=== PATIENT | male | born 1960 | race Caucasian/White ===

== ENCOUNTER 2020-08-19 14:49 | Inpatient (IN) | payer OTHER ==
[2020-08-19] MEDS ORDERED: HEPARIN SODIUM,PORCINE 5,000 UNIT/ML 1 ML VIAL IV ONE (15:29)
[2020-08-19] MEDS ORDERED: HEPARIN SODIUM,PORCINE 5,000 UNIT/ML 1 ML VIAL IV PRN (15:29)
[2020-08-19] MEDS ORDERED: HEPARIN SOD,PORK IN 0.45% NACL 25,000 UNIT in 0.45% NACL 1 250ML.BAG IV SCH (15:30)
[2020-08-19] MEDS ORDERED: DILTIAZEM DRIP BOLUS FROM BAG 1 MG SOLN IV ONE (15:35)
--- NOTE | 2020-08-19 15:37 | ED ---
General Adult HPI - General Chief complaint: Shortness of Breath Stated complaint: SOB Time Seen by Provider: 08/19/20 15:07 Source: patient Mode of arrival: ambulatory Limitations: no limitations - History of Present Illness Initial comments: Dictation was produced using [employer] dictation software. please excuse any grammatical, word or spelling errors. This patient was cared for during a federal and state declared state of emergency secondary to Covid 19 Chief Complaint: 60-year-old male with history of H fibrillation presents with dyspnea History of Present Illness: Patient is a 60-year-old male he was diagnosed with atrial fibrillation several months back. He does not take medications for this. Patient does not take any medications at all. Over the last month or so he is coming down with flulike symptoms. Patient states that his cold symptoms resolved however over the last week he's been feeling orthopnea. He states that over the last 3 or 4 days he has been having dyspnea especially when lying flat. Patient has any palpitations. He has no pain complaints. He is noted swelling to his bilateral lower extremities. He has no calf pain. No history of DVT. The ROS documented in this emergency department record has been reviewed and confirmed by me. Those systems with pertinent positive or negative responses have been documented in the HPI. All other systems are other negative and/or noncontributory. PHYSICAL EXAM: General Impression: Alert and oriented x3, not in acute distress HEENT: Normocephalic atraumatic, extra-ocular movements intact, pupils equal and reactive to light bilaterally, mucous membranes moist. Cardiovascular: Irregularly irregular Chest: Able to complete full sentences, no retractions, no tachypnea Abdomen: abdomen soft, non-tender, non-distended, no organomegaly Musculoskeletal: Pulses present and equal in all extremities, 1+ edema bilaterally Motor: no focal deficits noted Neurological: CN II-XII grossly intact, no focal motor or sensory deficits noted Skin: Intact with no visualized rashes Psych: Normal affect and mood ED course: 60-year-old male presents emergency Department with chief complaint of dyspnea. He does have atrial fibrillation at bedside. Vital signs upon arrival shows heart rate of 73, rest of vital signs within acceptable limits. EKG is performed showing ventricular rate of 147 with atrial fibrillation. Patient denies any palpitations. There is concern that patient has been in A. fib for more than 48 hours over its more than likely that he's been having paroxysms. Patient has symptoms of heart failure. Laboratory evaluation obtained. CBC unremarkable. Coag panel is negative. Metabolic panel shows mild acidosis with a bicarb of 19. Rest of metabolic panel is unremarkable. Cardiac enzymes negative. covid 19 is positive. Patient reevaluated at bedside at 4:40 PM with stable medical condition. Patient be admitted for A. fib with RVR. Patient not hypoxic not showing any signs of respiratory distress. No indication for Covid 19 treatment at this time. EKG interpretation: Ventricular rate 147, A. fib, QRS 90, QTc 503. No CT prolongation, no QTC prolongation, no ST or T-wave changes noted. EKG consistent with recurrent A. fib. No old EKG for comparison. - Related Data Home Medications Medication Instructions Recorded Confirmed Ibuprofen [Motrin Ib] 200 mg PO Q8H PRN 08/19/20 08/19/20 Naproxen Sodium [Aleve] 440 mg PO BID PRN 08/19/20 08/19/20 Allergies Allergy/AdvReac Type Severity Reaction Status Date / Time No Known Allergies Allergy Verified 08/19/20 16:04 Review of Systems ROS Statement: Those systems with pertinent positive or pertinent negative responses have been documented in the HPI. ROS Other: All systems not noted in ROS Statement are negative. Past Medical History Past Medical History: No Reported History History of Any Multi-Drug Resistant Organisms: None Reported Past Surgical History: Appendectomy, Tonsillectomy Past Psychological History: No Psychological Hx Reported Smoking Status: Never smoker Past Alcohol Use History: Rare Past Drug Use History: None Reported General Exam Limitations: no limitations Course Vital Signs 08/19/20 08/19/20 08/19/20 14:59 16:02 16:22 Temperature 98.5 F Pulse Rate 73 144 H 95 Respiratory 20 18 18 Rate Blood Pressure 131/89 137/125 132/100 O2 Sat by Pulse 96 96 98 Oximetry 08/19/20 16:32 Temperature Pulse Rate 97 Respiratory 18 Rate Blood Pressure 117/101 O2 Sat by Pulse 98 Oximetry Medical Decision Making - Lab Data Result diagrams: 08/19/20 15:32 08/19/20 15:32 Lab Results 08/19/20 08/19/20 08/19/20 Range/Units 15:32 15:32 15:32 WBC 7.7 (3.8-10.6) k/uL RBC 5.32 (4.30-5.90) m/uL Hgb 14.8 (13.0-17.5) gm/dL Hct 44.7 (39.0-53.0) % MCV 83.9 (80.0-100.0) fL MCH 27.7 (25.0-35.0) pg MCHC 33.1 (31.0-37.0) g/dL RDW 13.4 (11.5-15.5) % Plt Count 232 (150-450) k/uL MPV 7.7 Neutrophils % 64 % Lymphocytes % 22 % Monocytes % 9 % Eosinophils % 3 % Basophils % 1 % Neutrophils # 4.9 (1.3-7.7) k/uL Lymphocytes # 1.7 (1.0-4.8) k/uL Monocytes # 0.7 (0-1.0) k/uL Eosinophils # 0.2 (0-0.7) k/uL Basophils # 0.1 (0-0.2) k/uL PT 11.7 (9.0-12.0) sec INR 1.1 (<1.2) APTT 22.4 (22.0-30.0) sec Sodium (137-145) mmol/L Potassium (3.5-5.1) mmol/L Chloride (98-107) mmol/L Carbon Dioxide (22-30) mmol/L Anion Gap mmol/L BUN (9-20) mg/dL Creatinine (0.66-1.25) mg/dL Est GFR (CKD-EPI)AfAm (>60 ml/min/1.73 sqM) Est GFR (CKD-EPI)NonAf (>60 ml/min/1.73 sqM) Glucose (74-99) mg/dL Calcium (8.4-10.2) mg/dL Magnesium (1.6-2.3) mg/dL Total Bilirubin (0.2-1.3) mg/dL AST (17-59) U/L ALT (4-49) U/L Alkaline Phosphatase (38-126) U/L Troponin I (0.000-0.034) ng/mL NT-Pro-B Natriuret Pep pg/mL Total Protein (6.3-8.2) g/dL Albumin (3.5-5.0) g/dL TSH (0.465-4.680) mIU/L Coronavirus (PCR) Detected A (Not Detectd) 08/19/20 08/19/20 08/19/20 Range/Units 15:32 15:32 15:32 WBC (3.8-10.6) k/uL RBC (4.30-5.90) m/uL Hgb (13.0-17.5) gm/dL Hct (39.0-53.0) % MCV (80.0-100.0) fL MCH (25.0-35.0) pg MCHC (31.0-37.0) g/dL RDW (11.5-15.5) % Plt Count (150-450) k/uL MPV Neutrophils % % Lymphocytes % % Monocytes % % Eosinophils % % Basophils % % Neutrophils # (1.3-7.7) k/uL Lymphocytes # (1.0-4.8) k/uL Monocytes # (0-1.0) k/uL Eosinophils # (0-0.7) k/uL Basophils # (0-0.2) k/uL PT (9.0-12.0) sec INR (<1.2) APTT (22.0-30.0) sec Sodium 139 (137-145) mmol/L Potassium 4.6 (3.5-5.1) mmol/L Chloride 110 H (98-107) mmol/L Carbon Dioxide 19 L (22-30) mmol/L Anion Gap 10 mmol/L BUN 21 H (9-20) mg/dL Creatinine 0.84 (0.66-1.25) mg/dL Est GFR (CKD-EPI)AfAm >90 (>60 ml/min/1.73 sqM) Est GFR (CKD-EPI)NonAf >90 (>60 ml/min/1.73 sqM) Glucose 98 (74-99) mg/dL Calcium 9.1 (8.4-10.2) mg/dL Magnesium 1.7 (1.6-2.3) mg/dL Total Bilirubin 1.2 (0.2-1.3) mg/dL AST 30 (17-59) U/L ALT 40 (4-49) U/L Alkaline Phosphatase 74 (38-126) U/L Troponin I <0.012 (0.000-0.034) ng/mL NT-Pro-B Natriuret Pep 4610 pg/mL Total Protein 6.3 (6.3-8.2) g/dL Albumin 4.0 (3.5-5.0) g/dL TSH 2.060 (0.465-4.680) mIU/L Coronavirus (PCR) (Not Detectd) Disposition Clinical Impression: Afib, COVID-19 Disposition: ADMITTED IP TO THIS HOSP Condition: Fair Referrals: Fredrick Sevilla DO [Primary Care Provider] - 1-2 days Decision Time: 16:43
[2020-08-19 15:41] LABS: Basophils # (A) 0.1 k/uL (0-0.2); Basophils % (A) 1 %; Eosinophils # (A) 0.2 k/uL (0-0.7); Eosinophils % (A) 3 %; HCT 44.7 % (39.0-53.0); HGB 14.8 gm/dL (13.0-17.5); Lymphocytes # (A) 1.7 k/uL (1.0-4.8); Lymphocytes % (A) 22 %; MCH 27.7 pg (25.0-35.0); MCHC 33.1 g/dL (31.0-37.0); MCV 83.9 fL (80.0-100.0); Mean Platelet Volume 7.7; Monocytes # (A) 0.7 k/uL (0-1.0); Monocytes % (A) 9 %; Neutrophils # (A) 4.9 k/uL (1.3-7.7); Neutrophils % (A) 64 %; Platelet Count 232 k/uL (150-450); RBC 5.32 m/uL (4.30-5.90); RDW 13.4 % (11.5-15.5); WBC 7.7 k/uL (3.8-10.6)
[2020-08-19 15:50] LABS: ALT 40 U/L (4-49); AST 30 U/L (17-59); African American GFR (CKD) >90 (>60 ml/min/1.73 sqM); Alkaline Phosphatase 74 U/L (38-126); Anion Gap 10 mmol/L; Blood Urea Nitrogen 21 mg/dL (9-20); Calcium 9.1 mg/dL (8.4-10.2); Carbon Dioxide 19 mmol/L (22-30); Chloride 110 mmol/L (98-107); Glucose 98 mg/dL (74-99); Magnesium 1.7 mg/dL (1.6-2.3); Non-African American GFR(CKD) >90 (>60 ml/min/1.73 sqM); Potassium 4.6 mmol/L (3.5-5.1); Sodium 139 mmol/L (137-145); Total Bilirubin 1.2 mg/dL (0.2-1.3); Total Protein 6.3 g/dL (6.3-8.2)
[2020-08-19 15:53] LABS: INR 1.1 (<1.2); Partial Thromboplastin Time 22.4 sec (22.0-30.0); Prothrombin Time 11.7 sec (9.0-12.0)
[2020-08-19] MEDS: DILTIAZEM 125 MG in SODIUM CHLORIDE 0.9% 100 ML IV SCH (16:10)
--- NOTE | 2020-08-19 16:24 | XR ---
EXAMINATION TYPE: XR chest 1V portable DATE OF EXAM: 08/19/2020 Comparison: None Clinical History: 60 year-old male shortness of breath, dyspnea Findings: Heart mild to moderately enlarged. Mild patchy density in the right midlung. Otherwise, no consolidat ion or pleural effusion. Impression: Mild to moderate cardiomegaly. Mild patchy atelectasis versus early infiltrate in the right midlung.
[2020-08-19] MEDS ORDERED: NALOXONE 0.4 MG/ML 1 ML VIAL IV PRN (16:40)
[2020-08-19] MEDS ORDERED: ALBUTEROL HFA INHALER INHALATION PRN (19:05)
[2020-08-19 19:19] LABS: C Reactive Protein 7.7 mg/L (<10.0)
[2020-08-19] MEDS: ALBUTEROL HFA INHALER INHALATION SCH (19:43)
[2020-08-19] MEDS: ASCORBIC ACID 500 MG TAB PO SCH (19:54)
[2020-08-19] MEDS: CHOLECALCIFEROL 25 MCG (1000 IU) TABLET PO SCH ×3 (19:54→22:00)
[2020-08-19] MEDS: dexAMETHasone 2 MG TAB PO SCH (19:54)
[2020-08-19] MEDS: SODIUM CHLORIDE 0.9% 1,000 ML IV SCH (19:54)
[2020-08-19] MEDS: ZINC SULFATE 220 MG CAP PO SCH (19:54)
--- NOTE | 2020-08-19 20:03 | HP ---
HISTORY AND PHYSICAL CHIEF COMPLAINTS: Shortness of breath and palpitations. HISTORY OF PRESENT ILLNESS: This 60-year-old gentleman with a past medical history of appendectomy and tonsillectomy, being followed by Dr. Sevilla in the outpatient setting, was not feeling well over the past several days. The patient has had some flu-like symptoms for about a month. The patient's colleague at work had COVID in April. The patient was having more shortness of breath and was unable to sleep and lie flat for the last 3- 4 days. Because of increased symptoms, the patient came to [facility] and was admitted for further evaluation and treatment. The chest x-ray showed suspicion of pneumonia in the right side and the COVID-19 test . There is no history of any fever, rigor or chills. No history of headache, loss of consciousness, seizures. NT proBNP was elevated 4610. The EKG showed atrial fibrillation with a fast ventricular rate. The patient also had previous atrial fibrillation with rapid ventricular rate, for which the patient had DC shock and cardioversion. PAST MEDICAL HISTORY: Appendectomy, tonsillectomy. HOME MEDICATIONS: Naprosyn, ibuprofen. ALLERGIES: NONE. FAMILY HISTORY: No history of heart disease or strokes in the family. SOCIAL HISTORY: No history of smoking. No history of alcohol intake. REVIEW OF SYSTEMS: ENT: No diminished hearing. No diminished vision. CARDIOVASCULAR SYSTEM: No angina, palpitations. RESPIRATORY SYSTEM: As mentioned earlier. GI: As mentioned earlier. : No dysuria or retention. NERVOUS SYSTEM: No numbness, weakness. ALLERGY/IMMUNOLOGY: No asthma, hayfever. MUSCULOSKELETAL: As mentioned earlier. HEMATOLOGY/ONCOLOGY: No history of anemia. ENDOCRINE: No history of diabetes, hypothyroidism. CONSTITUTIONAL: As mentioned earlier. DERMATOLOGY: Negative. RHEUMATOLOGY: Negative. PSYCHIATRY: As mentioned earlier. PHYSICAL EXAMINATION: Patient alert and oriented x3. Pulse 96, blood pressure 130/94, respiration 18, temperature normal, pulse ox 97% on room air. HEENT: Conjunctivae normal. NECK: No jugular venous distention. CARDIOVASCULAR SYSTEM: S1, S2 muffled. RESPIRATORY SYSTEM: Breath sounds diminished at the bases. No rhonchi. No crackles. ABDOMEN: Soft, non-tender. No mass palpable. LEGS: No edema. No swelling. NERVOUS SYSTEM: Higher functions as mentioned earlier. Moves all 4 limbs. No focal motor or sensory deficit. LYMPHATICS: No lymph node palpable in neck, axillae or groin. SKIN: No ulcer, rash, bleeding. JOINTS: No active deforming arthropathy. LABS: CBC within normal limits. CO2 is 19. COVID-19 is positive. Chest x-ray reviewed personally. EKG atrial fibrillation with rapid ventricular rate. ASSESSMENT: 1. Atrial fibrillation with a fast ventricular rate. 2. Acute COVID-19 as well as COVID-19 pneumonia and orthopnea. 3. History of appendectomy. 4. History of tonsillectomy. 5. Decreased carbon dioxide. 6. Increased BUN. 7. FULL CODE. 8. Obesity with body mass index of 31.7. RECOMMENDATIONS AND DISCUSSION: In this 60-year-old gentleman who presented with multiple complex medical issues, we will monitor the patient closely, continue the current medications, continue symptomatic treatment. I would recommend bronchodilators. I also recommend dexamethasone and zinc and other medications. Cardizem drip was initiated. I would also recommend baseline labs, inflammatory markers for COVID-19 and also procalcitonin. I also ordered D-dimer, and if it is positive I would recommend a CT angio of the chest to rule out possible pulmonary embolism. Overall prognosis guarded because of multiple complex medical issues. Questions were answered. A copy of this dictation is being forwarded to Dr. Sevilla, who is the primary physician. SANKETL / YAZMINN: [id number] / MTDD
[2020-08-19] MEDS: FUROSEMIDE 10 MG/ML 2 ML VIAL IV SCH (22:02)
[2020-08-19 22:06] LABS: Appearance,Urine Clear (Clear); Bilirubin,Urine Negative (Negative); Blood,Urine Negative (Negative); Color,Urine Yellow; Glucose,Urine (UA) Negative (Negative); Ketones,Urine 1+ (Negative); Leukocyte Esterase,Urine Negative (Negative); Nitrite,Urine Negative (Negative); PH, Urine 5.5 (5.0-8.0); Protein,Urine Negative (Negative); Specific Gravity,Urine 1.016 (1.001-1.035); Urobilinogen,Urine <2.0 mg/dL (<2.0)
[2020-08-20] MEDS: DILTIAZEM 125 MG in SODIUM CHLORIDE 0.9% 100 ML IV SCH (05:39)
[2020-08-20 06:31] LABS: Basophils % (A) 0 %; Eosinophils % (A) 0 %; HCT 44.6 % (39.0-53.0); HGB 14.5 gm/dL (13.0-17.5); Lymphocytes # (A) 0.6 k/uL (1.0-4.8); Lymphocytes % (A) 12 %; MCH 28.2 pg (25.0-35.0); MCHC 32.6 g/dL (31.0-37.0); MCV 86.3 fL (80.0-100.0); Mean Platelet Volume 8.2; Monocytes # (A) 0.2 k/uL (0-1.0); Monocytes % (A) 4 %; Neutrophils # (A) 3.7 k/uL (1.3-7.7); Neutrophils % (A) 82 %; Platelet Count 217 k/uL (150-450); RBC 5.16 m/uL (4.30-5.90); RDW 13.5 % (11.5-15.5); WBC 4.5 k/uL (3.8-10.6)
[2020-08-20 06:50] LABS: African American GFR (CKD) >90 (>60 ml/min/1.73 sqM); Anion Gap 10 mmol/L; Blood Urea Nitrogen 16 mg/dL (9-20); Calcium 8.8 mg/dL (8.4-10.2); Carbon Dioxide 18 mmol/L (22-30); Chloride 110 mmol/L (98-107); Glucose 127 mg/dL (74-99); Non-African American GFR(CKD) >90 (>60 ml/min/1.73 sqM); Potassium 4.7 mmol/L (3.5-5.1); Sodium 138 mmol/L (137-145)
[2020-08-20] MEDS: ALBUTEROL HFA INHALER INHALATION SCH ×3 (08:21→20:27)
[2020-08-20 08:24] LABS: Ferritin 36.7 ng/mL (22.0-322.0)
[2020-08-20] MEDS ORDERED: METOPROLOL TARTRATE 25 MG TAB PO SCH (09:00)
--- NOTE | 2020-08-20 09:25 | P.CRDCN ---
History of Present Illness History of present illness: HISTORY OF PRESENTING ILLNESS This is a pleasant 60-year-old male with no significant past medical history. He followed with a hoop coiler, Dr. Freed, in [facility] 4 years ago when patient. Patient was in atrial fibrillation at that time he states his hoop coiler right him on anticoagulation and had a successful cardioversion to sinus mechanism. We have been asked to see in consultation for Atrial fibrillation with RVR. Patient is seen and examined at bedside apparent distress. Patient states that he's been shortness of breath and flu like symptoms for 3 weeks, found to be COVID-19 positive. His flu like systems resolved, however, he continued to have shortness of breath without improvement and presented to the emergency department. Patient denies chest pain, palpitations, lower extremity edema, lightheadedness, syncope. Patient was a former smoker and quit 6 years ago. Patient denies history of diabetes, stroke, AL, or coronary artery disease. Laboratory data reviewed, Covid 19 positive, sodium 138, potassium 4.7, renal function stable creatinine 0.6, troponin negative x 1. BNP 4,610, D-dimer 1.74, TSH normal, liver enzymes within normal limits. Vital signs blood pressure 114/96, heart rate 87, respirations 18, O2 saturations stable on room air. DIAGNOSTICS EKG reveals atrial fibriallation with rapid ventricular response, HR 140s. . Telemetry tracings indicate atrial fibrillation, HR 90s. Chest xray mild to moderate cardiomegaly, mild patchy atelectasis vs early infiltrate in the right mid lung. . Patient is not currently on any cardiac medications REVIEW OF SYSTEMS At the time of my exam: CONSTITUTIONAL: Denies fever or chills. CARDIOVASCULAR: +shortness of breath, +orthopnea. Denies chest pain, PND or palpitations. RESPIRATORY: Denies cough. GASTROINTESTINAL: Denies abdominal pain, diarrhea, constipation, nausea or vomiting. MUSCULOSKELETAL: Denies myalgias. NEUROLOGIC: Denies numbness, tingling, headacbe or weakness. ENDOCRINE: Denies fatigue, weight change, polydipsia or polyurina. GENITOURINARY: Denies burning, hematuria or urgency with micturation. HEMATOLOGIC: Denies history of anemia or bleeding. PHYSICAL EXAMINATION CONSTITUTIONAL: No apparent distress. HEENT: Head is normocephalic. Pupils are equal, round. Sclerae anicteric. Mucous membranes of the mouth are moist. No JVD. No carotid bruit. CHEST EXAMINATION: Lungs are clear to auscultation. No chest wall tenderness is noted on palpation or with deep breathing. HEART EXAMINATION: Irregular rate and rhythm. S1, S2 heard. No murmurs, gallops or rub. ABDOMEN: Soft, nontender. Positive bowel sounds. EXTREMITIES: 2+ peripheral pulses, no lower extremity edema and no calf tenderness. SKIN: intact, no wounds, no rashes NEUROLOGIC EXAMINATION: Patient is awake, alert and oriented x3. ASSESSMENT -Paroxysmal atrial fibrillation - [id number] 0-1 (patient with hypertension during admission, however, no diagnosis) -COVID-19 infection -Obesity BMI 33.7 PLAN -Ordered TTE -Start beta susan: metoprolol 25mg BID, stop cardizem drip will monitor im provement in heart rate -Start Eliquis and send to pharmacy and correlate with case management to check cost. Patient could be of benefit of KAJAL Cardioversion. -Stop heparin gtt. -Check Lipid panel Nurse Practitioner note has been reviewed, I agree with a documented findings and plan of care. Patient was seen and examined. Past Medical History Past Medical History: Atrial Fibrillation History of Any Multi-Drug Resistant Organisms: None Reported Past Surgical History: Appendectomy, Tonsillectomy Additional Past Surgical History / Comment(s): Right testicle removal at Past Psychological History: No Psychological Hx Reported Smoking Status: Former smoker Past Alcohol Use History: Rare Additional Past Alcohol Use History / Comment(s): Quit smoking in 2014 Past Drug Use History: None Reported Medications and Allergies Home Medications Medication Instructions Recorded Confirmed Type Ibuprofen [Motrin Ib] 200 mg PO Q8H PRN 08/19/20 08/19/20 History Naproxen Sodium [Aleve] 440 mg PO BID PRN 08/19/20 08/19/20 History Apixaban [Eliquis] 5 mg PO BID #180 tab 08/20/20 Rx Allergies Allergy/AdvReac Type Severity Reaction Status Date / Time No Known Allergies Allergy Verified 08/19/20 16:04 Physical Exam Vitals: Vital Signs Temp Pulse Pulse Resp BP BP Pulse Ox 08/20/20 03:05 97.5 F L 99 18 132/86 95 08/20/20 01:00 98 F 101 H 18 149/106 96 08/20/20 00:22 97.9 F 102 H 16 122/96 96 08/19/20 23:08 87 18 114/96 94 L 08/19/20 22:00 97 18 113/102 97 08/19/20 21:00 98 18 125/102 98 08/19/20 20:47 92 18 151/71 08/19/20 19:44 94 18 109/97 98 08/19/20 19:00 99 18 121/90 97 08/19/20 18:00 106 H 18 134/101 97 08/19/20 17:26 96 18 135/94 97 08/19/20 17:06 18 08/19/20 16:32 97 18 117/101 98 08/19/20 16:22 95 18 132/100 98 08/19/20 16:02 144 H 18 137/125 96 08/19/20 14:59 98.5 F 73 20 131/89 96 Intake and Output 08/19/20 08/20/20 08/20/20 22:59 06:59 14:59 Intake Total 1.833 216.057 Output Total 250 1100 Balance 1.833 -33.943 -1100 Intake: Intake, IV Titration 1.833 216.057 Amount Diltiazem 125 mg In 1.833 66.5 Sodium Chloride 0.9% 100 ml @ 10 MG/HR 10 mls/hr IV .[id number] [facility] Rx#: [id number] Heparin Sod,Pork in 0.45% 149.557 NaCl 25,000 unit In 0.45 % NaCl 1 250ml.bag @ 9.2 UNITS/KG/HR 10.015 mls/hr IV .Q24H [facility] Rx#: [id number] Output: Urine 250 1100 Other: Voiding Method Toilet Urinal # Voids 1 Weight 116 kg Results 08/20/20 05:34 08/20/20 05:34 Cardiac Enzymes 08/19/20 08/19/20 08/19/20 Range/Units 15:32 15:32 15:32 AST 30 (17-59) U/L Lactate Dehydrogenase 584 (313-618) U/L Troponin I <0.012 (0.000-0.034) ng/mL Coagulation 08/19/20 08/19/20 08/20/20 Range/Units 15:32 21:26 05:35 PT 11.7 (9.0-12.0) sec APTT 22.4 31.5 H 26.7 (22.0-30.0) sec CBC 08/19/20 08/20/20 Range/Units 15:32 05:34 WBC 7.7 4.5 (3.8-10.6) k/uL RBC 5.32 5.16 (4.30-5.90) m/uL Hgb 14.8 14.5 (13.0-17.5) gm/dL Hct 44.7 44.6 (39.0-53.0) % Plt Count 232 217 (150-450) k/uL Comprehensive Metabolic Panel 08/19/20 08/20/20 Range/Units 15:32 05:34 Sodium 139 138 (137-145) mmol/L Potassium 4.6 4.7 (3.5-5.1) mmol/L Chloride 110 H 110 H (98-107) mmol/L Carbon Dioxide 19 L 18 L (22-30) mmol/L BUN 21 H 16 (9-20) mg/dL Creatinine 0.84 0.76 (0.66-1.25) mg/dL Glucose 98 127 H (74-99) mg/dL Calcium 9.1 8.8 (8.4-10.2) mg/dL AST 30 (17-59) U/L ALT 40 (4-49) U/L Alkaline Phosphatase 74 (38-126) U/L Total Protein 6.3 (6.3-8.2) g/dL Albumin 4.0 (3.5-5.0) g/dL Current Medications Generic Name Dose Route Start Last Admin Trade Name Freq PRN Reason Stop Dose Admin Albuterol Sulfate 2 puff 08/19/20 20:00 08/20/20 08:21 Albuterol Hfa Inhaler INHALATION 2 puff RT-TID [facility]MY Administration Albuterol Sulfate 2 puff 08/19/20 19:05 Albuterol Hfa Inhaler INHALATION RT-TID PRN Shortness Of Breath Or Wheezing Ascorbic Acid 500 mg 08/19/20 19:00 08/19/20 19:54 Ascorbic Acid 500 Mg Tab PO 500 mg DAILY AMMY Administration Ascorbic Acid 1,000 mg 03/03/21 09:00 Ascorbic Acid 500 Mg Tab PO DAILY [facility] Cholecalciferol 25 mcg 08/19/20 19:00 08/19/20 20:06 Cholecalciferol 25 Mcg (1000 Iu) Tablet PO 25 mcg DAILY AMMY Administration Cholecalciferol 25 mcg 08/19/20 20:00 08/19/20 22:00 Cholecalciferol 25 Mcg (1000 Iu) Tablet PO Not Given DAILY [facility]MY Cholecalciferol 25 mcg 08/20/20 09:00 Cholecalciferol 25 Mcg (1000 Iu) Tablet PO DAILY [facility] Dexamethasone 6 mg 08/19/20 19:00 08/19/20 19:54 Dexamethasone 2 Mg Tab PO 6 mg DAILY [facility]MY Administration Furosemide 20 mg 08/19/20 21:00 08/19/20 22:02 Furosemide 10 Mg/Ml 2 Ml Vial IV 20 mg Q12HR [facility] Administration Heparin Sodium (Porcine) 0 unit 08/19/20 15:29 08/20/20 06:54 Heparin Sodium,Porcine 5,000 Unit/Ml 1 Ml Vial IV 4,000 unit PER PROTOCOL PRN Administration Low PTT Protocol Heparin Sodium/Sodium Chloride 250 mls @ 10.015 mls/hr 08/19/20 15:30 08/20/20 06:48 25,000 unit/ Sodium Chloride IV 12.2 units/kg/hr .Q24H [facility] 13.281 mls/hr Titration Protocol 9.2 UNITS/KG/HR Diltiazem HCl 125 mg/ Sodium 125 mls @ 10 mls/hr 08/19/20 15:45 08/20/20 05:39 Chloride IV 5 mg/hr .[id number] [facility]MY 5 mls/hr Administration 10 MG/HR Sodium Chloride 1,000 mls @ 20 mls/hr 08/19/20 16:45 08/19/20 19:54 Saline 0.9% IV 20 mls/hr .Q24H [facility] Administration Metoprolol Tartrate 25 mg 08/20/20 09:00 Metoprolol Tartrate 25 Mg Tab PO BID [facility] Naloxone HCl 0.2 mg 08/19/20 16:40 Naloxone 0.4 Mg/Ml 1 Ml Vial IV Q2M PRN Opioid Reversal Zinc Sulfate 220 mg 08/19/20 19:00 08/19/20 19:54 Zinc Sulfate 220 Mg Cap PO 220 mg DAILY [facility]MY Administration Zinc Sulfate 220 mg 08/20/20 09:00 Zinc Sulfate 220 Mg Cap PO DAILY [facility] Intake and Output 08/19/20 08/20/20 08/20/20 22:59 06:59 14:59 Intake Total 1.833 216.057 Output Total 250 1100 Balance 1.833 -33.943 -1100 Intake: Intake, IV Titration 1.833 216.057 Amount Diltiazem 125 mg In 1.833 66.5 Sodium Chloride 0.9% 100 ml @ 10 MG/HR 10 mls/hr IV .[id number] [facility] Rx#: [id number] Heparin Sod,Pork in 0.45% 149.557 NaCl 25,000 unit In 0.45 % NaCl 1 250ml.bag @ 9.2 UNITS/KG/HR 10.015 mls/hr IV .Q24H [facility] Rx#: [id number] Output: Urine 250 1100 Other: Voiding Method Toilet Urinal # Voids 1 Weight 116 kg 08/20/20 05:34 08/20/20 05:34
[2020-08-20] MEDS: dexAMETHasone 2 MG TAB PO SCH (09:46)
[2020-08-20] MEDS: ZINC SULFATE 220 MG CAP PO SCH (09:46)
[2020-08-20] MEDS: ASCORBIC ACID 500 MG TAB PO SCH (09:46)
[2020-08-20] MEDS: FUROSEMIDE 10 MG/ML 2 ML VIAL IV SCH ×2 (09:47→20:30)
[2020-08-20] MEDS: CHOLECALCIFEROL 25 MCG (1000 IU) TABLET PO SCH (09:47)
[2020-08-20] MEDS: APIXABAN 5 MG TAB PO SCH ×2 (09:51→20:30)
--- NOTE | 2020-08-20 10:31 | P.CNPUL ---
History of Present Illness Consult date: 08/20/20 Reason for consult: dyspnea History of present illness: 60-year-old female patient who presented emergency department because of shortness of breath and tachycardia. The patient was diagnosed having atrial fibrillation several months back. She started having cold-like symptoms and over the past 1 week she has been feeling worsening shortness of breath and orthopnea. Over the past few days, dyspnea got worse to the point where she was unable to lay down flat because of shortness of breath and was having worsening palpitation. Denied having any chest pain. She also notices swelling in lower extremities. No angina. No pleurisy. No previous history of DVT or pulmonary embolism. She came into the emergency department and the patient was found to be in atrial fibrillation. Her vitals were essentially stable and EKG showed rapid ventricular response with a heart rate of 147 with underlying atrial fibrillation rhythm. The white cell count was at 7.7 her hemoglobin of 14.8 and a platelet of 232. Coagulation profile was within normal limits. The patient had a sodium 139, chloride of 4.6 with a serum bicarb of 19, BUN was 21 with a creatinine of 0.8 and the liver function tests are essentially within normal limits, LDH was 584 and a troponin was less than 0.012. ProBNP level was 4610. Over COVID 19 by PCR came back positive. The chest x-ray showed mild to moderate cardiomegaly and mild patchy atelectasis/infiltrate in the lung. The patient was started on Decadron 6 mg by mouth daily. The patient was started on IV heparin. The patient was also started on a Cardizem drip or rate control is currently running at 10 mg an hour. This morning, the patient is still on Cardizem drip and it has been weaned down to 5 mg an hour. The patient was taken off the IV heparin and patient has been switched to oral Eliquis. Echocardiogram is still pending for now. Review of Systems Constitutional: Reports as per HPI Eyes: denies as per HPI, denies blurred vision, denies bulging eye, denies decreased vision, denies diplopia, denies discharge, denies dry eye, denies irritation, denies itching, denies pain, denies photophobia, denies loss of peripheral vision, denies loss of vision, denies tunnel vision/blind spots Breasts: absent: as per HPI, gynecomastia Cardiovascular: Reports as per HPI, Reports decreased exercise tolerance, Reports dyspnea on exertion, Reports irregular heart beat, Reports leg edema, Reports orthopnea, Reports shortness of breath Respiratory: Reports dyspnea Gastrointestinal: Reports as per HPI Musculoskeletal: Reports as per HPI Musculoskeletal: bilateral: ankle swelling, absent: ankle pain, ankle stiffness Integumentary: Reports as per HPI Neurological: Reports as per HPI Psychiatric: Reports as per HPI Endocrine: Reports as per HPI Hematologic/Lymphatic: Reports as per HPI Allergic/Immunologic: Reports as per HPI Past Medical History Past Medical History: Atrial Fibrillation History of Any Multi-Drug Resistant Organisms: None Reported Past Surgical History: Appendectomy, Tonsillectomy Additional Past Surgical History / Comment(s): Right testicle removal at Past Psychological History: No Psychological Hx Reported Smoking Status: Former smoker Past Alcohol Use History: Rare Additional Past Alcohol Use History / Comment(s): Quit smoking in 2014 Past Drug Use History: None Reported Medications and Allergies Home Medications Medication Instructions Recorded Confirmed Type Ibuprofen [Motrin Ib] 200 mg PO Q8H PRN 08/19/20 08/19/20 History Naproxen Sodium [Aleve] 440 mg PO BID PRN 08/19/20 08/19/20 History RX: Apixaban [Eliquis] 5 mg PO BID #180 tab 08/20/20 Rx Allergies Allergy/AdvReac Type Severity Reaction Status Date / Time No Known Allergies Allergy Verified 08/19/20 16:04 Physical Exam Vitals: Vital Signs Temp Pulse Pulse Resp BP BP Pulse Ox 08/20/20 03:05 97.5 F L 99 18 132/86 95 08/20/20 01:00 98 F 101 H 18 149/106 96 08/20/20 00:22 97.9 F 102 H 16 122/96 96 08/19/20 23:08 87 18 114/96 94 L 08/19/20 22:00 97 18 113/102 97 08/19/20 21:00 98 18 125/102 98 08/19/20 20:47 92 18 151/71 08/19/20 19:44 94 18 109/97 98 08/19/20 19:00 99 18 121/90 97 08/19/20 18:00 106 H 18 134/101 97 08/19/20 17:26 96 18 135/94 97 08/19/20 17:06 18 08/19/20 16:32 97 18 117/101 98 08/19/20 16:22 95 18 132/100 98 08/19/20 16:02 144 H 18 137/125 96 08/19/20 14:59 98.5 F 73 20 131/89 96 Intake and Output 08/19/20 08/20/20 08/20/20 22:59 06:59 14:59 Intake Total 1.833 216.057 Output Total 250 1100 Balance 1.833 -33.943 -1100 Intake: Intake, IV Titration 1.833 216.057 Amount Diltiazem 125 mg In 1.833 66.5 Sodium Chloride 0.9% 100 ml @ 10 MG/HR 10 mls/hr IV .[id number] [facility] Rx#: [id number] Heparin Sod,Pork in 0.45% 149.557 NaCl 25,000 unit In 0.45 % NaCl 1 250ml.bag @ 9.2 UNITS/KG/HR 10.015 mls/hr IV .Q24H [facility] Rx#: [id number] Output: Urine 250 1100 Other: Voiding Method Toilet Urinal # Voids 1 Weight 116 kg General Impression: Alert and oriented x3, not in acute distress HEENT: Normocephalic atraumatic, extra-ocular movements intact, pupils equal and reactive to light bilaterally, mucous membranes moist. Cardiovascular: Irregularly irregular Chest: Able to complete full sentences, no retractions, no tachypnea Abdomen: abdomen soft, non-tender, non-distended, no organomegaly Musculoskeletal: Pulses present and equal in all extremities, 1+ edema bilaterally Motor: no focal deficits noted Neurological: CN II-XII grossly intact, no focal motor or sensory deficits noted Skin: Intact with no visualized rashes Psych: Normal affect and mood Results - Laboratory Findings CBC and BMP: 08/20/20 05:34 08/20/20 05:34 PT/INR, D-dimer PT 11.7 sec (9.0-12.0) 08/19/20 15:32 INR 1.1 (<1.2) 08/19/20 15:32 D-Dimer 1.74 mg/L FEU (<0.60) H 08/19/20 15:32 Abnormal lab findings: Abnormal Labs 03/08/1008/19/20 08/19/20 15:32 15:32 15:32 Lymphocytes # APTT D-Dimer 1.74 H Chloride 110 H Carbon Dioxide 19 L BUN 21 H Glucose Urine Ketones Coronavirus (PCR) Detected A 08/19/20 08/19/20 08/20/20 21:26 21:55 05:34 Lymphocytes # 0.6 L APTT 31.5 H D-Dimer Chloride Carbon Dioxide BUN Glucose Urine Ketones 1+ H Coronavirus (PCR) 08/20/20 05:34 Lymphocytes # APTT D-Dimer Chloride 110 H Carbon Dioxide 18 L BUN Glucose 127 H Urine Ketones Coronavirus (PCR) - Diagnostic Findings Chest x-ray: image reviewed Assessment and Plan Plan: 1 Acute COVID 19 infection with secondary pneumonia, and the patient symptoms were at least 2-3 weeks ago where he started developing cold-like symptoms and he was never tested for Covid 19. The cold symptoms have essentially recovered. 2 Chronic atrial fibrillation with RVR secondary to above, currently on IV heparin currently on Cardizem drip for rate control. 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 3 shortness of breath secondary to above, consider also the possibility of congestion heart failure with elevated proBNP level and increased swelling of the lower extremities Plan Evaluate the patient was admitted to the echocardiogram to assess LV function IV fluids to KVO Lasix 20 mg IV every 12 hours Decadron 6 mg by mouth daily regarding Covid 19 infection, in combination with vitamin C, vitamin D and zinc oxide, out of the window for Remdesivir IV heparin regarding atrial fibrillation with subsequent long-term anticoagulation regarding chronic atrial fibrillation with Eliquis and IV heparin has been discontinued Cardizem drip for rate control, the dose admitted To 5 Mg milligrams an hour and the patient is also on metoprolol 50 mg by mouth twice a day Cardiology consultation Monitor oxygenation To follow
--- NOTE | 2020-08-20 11:49 | ECHOF ---
Referral Reason:afib MEASUREMENTS -------- HEIGHT: 182.9 cm WEIGHT: 108.9 kg BP: Ao Diam: 3.4 cm (2.0 - 3.7) AV Cusp: 1.9 cm (1.5 - 2.6) LA Diam: 6.2 cm (2.7 - 3.8) RAP: 5.00 mmHg RVSP: 33.95 mmHg FINDINGS -------- Atrial fibrillation. Patient is Covid positive. The left ventricular size is normal. There is severe global hypokinesis of LV . Overall left vent ricular systolic function is severely impaired with, an EF between 20 - 25 %. The right ventricle is normal in size. The left atrial size is normal. The right atrial size is normal. There is mild aortic valve sclerosis without stenosis. There is no evidence of aortic regurgitation . An echodensity on the aortic valve likley represent aortic sclerosis but a vegetation or tumor ca n not be totally excluded. Mild mitral regurgitation is present. Mild tricuspid regurgitation present. Right ventricular systolic pressure is normal at < 35 mmHg. There is no pulmonic regurgitation present. The aortic root size is normal. There is no pericardial effusion. CONCLUSIONS -------- 1. Patient is Covid positive. 2. The left ventricular size is normal. 3. There is severe global hypokinesis of LV . 4. Overall left ventricular systolic function is severely impaired with, an EF between 20 - 25 %. 5. The right ventricle is normal in size. 6. The left atrial size is normal. 7. The right atrial size is normal. 8. There is mild aortic valve sclerosis without stenosis. 9. An echodensity on the aortic valve likley represent aortic sclerosis but a vegetation or tumor can not be totally excluded. 10. Mild tricuspid regurgitation present. 11. Right ventricular systolic pressure is normal at < 35 mmHg. 12. The aortic root size is normal. 13. There is no pericardial effusion. SUPERVISING NURSE: Adriana Wade RDCS
--- NOTE | 2020-08-20 16:00 | PN ---
PROGRESS NOTE DATE OF SERVICE: 08/20/2020 This 60-year-old gentleman who was admitted with shortness of breath had atrial fibrillation with a fast ventricular rate. The patient also had an elevated D- dimer. The patient is being closely monitored. The patient saturations are 94% on room air. The heart rate has improved significantly. A 2D echo with Doppler was done which showed ejection fraction about 20% to 25% and echodensity on the aortic valve. The patient was started on beta blockers. Past medical history reviewed. REVIEW OF SYSTEMS: CARDIOVASCULAR SYSTEM: No angina, palpitations. RESPIRATORY SYSTEM: As mentioned earlier. GI: As mentioned earlier. : No dysuria or retention. NERVOUS SYSTEM: No numbness, weakness. CURRENT MEDICATIONS: Reviewed. They include Ventolin, Eliquis, vitamin C, vitamin D3, Hexadrol, Lasix, Narcan, oral zinc. Doses are reviewed. PHYSICAL EXAMINATION: Patient is alert and oriented x3. Pulse 99, blood pressure 133/86, respiration 18, temperature 97.5, pulse ox 94% on room air. HEENT: Conjunctivae normal. NECK: No jugular venous distention. CARDIOVASCULAR SYSTEM: S1, S2 muffled. RESPIRATORY SYSTEM: Breath sounds diminished at the bases. A few scattered rhonchi and crackles. ABDOMEN: Soft, non-tender. LEGS: No edema. No swelling. NERVOUS SYSTEM: No focal deficit. LABS: D-dimer is 1.74. Other labs are noted. COVID-19 is positive. ASSESSMENT: 1. Atrial fibrillation with a fast ventricular rate, present on admission. 2. Acute COVID-19 pneumonia with COVID-19 infection and orthopnea, present on admission. 3. Possible congestive heart failure, acute exacerbation, acute on chronic systolic dysfunction, ejection fraction 20% to 30%. 4. History of appendectomy. 5. History of tonsillectomy. 6. Decreased carbon dioxide. 7. Increased BUN. 8. Obesity with a body mass index of 31.7. RECOMMENDATIONS AND DISCUSSION: In this 60-year-old gentleman who presented with multiple complex medical issues, we will monitor the patient closely, continue the current medications, continue with symptomatic treatment. Continue with the dexamethasone and the rest of the medications. The patient is already on apixaban. Otherwise, I would also recommend an infectious disease evaluation. Cardiology input appreciated. The severely depressed ejection fraction is a concern. I will also order a CT angio of the chest as well. Prognosis guarded because of multiple complex medical issues. Further recommendations to follow. MMODL / IJN: [id number] / MTDD
--- NOTE | 2020-08-20 16:50 | CT ---
EXAMINATION TYPE: CT angio chest DATE OF EXAM: 08/20/2020 COMPARISON: None HISTORY: Difficulty breathing. CT DLP: 664 mGycm Automated exposure control for dose reduction was used. CONTRAST: Performed with IV Contrast, patient injected with 100 mL of Isovue 370. Images obtained from the thoracic inlet to the diaphragm with IV contrast and 3-D post processed imag es. There are a few small paratracheal lymph nodes measuring less than 1 cm. Thoracic aorta is intact. Th e ascending aorta measures 4 cm. There are bilateral pleural effusions. There is bilateral lower lobe pulmonary infiltrate and atelect asis. There are no hilar masses. There is normal contrast opacification of the pulmonary arteries. There are no filling defects. There is some degenerative spurring in the thoracic spine. I see no bony destructive process. Upper abdomi nal soft tissues appear intact. IMPRESSION: No evidence of pulmonary embolism. Bilateral pleural effusions and lower lobe pulmonary infiltrates and atelectasis. Borderline 4 cm aneurysm ascending aorta.
[2020-08-20] MEDS: METOPROLOL TARTRATE 50 MG TAB PO SCH (20:30)
--- NOTE | 2020-08-20 22:12 | CONS ---
CONSULTATION DATE OF SERVICE: 08/20/2020 REASON FOR CONSULT: COVID-19 infection. HISTORY OF PRESENT ILLNESS: The patient is a 60-year-old male who presented to the ER yesterday for increasing shortness of breath and palpitation. The patient mentioned his symptoms have been going on for about a month. Initially he did have symptoms of a head cold that was going on for about 3 weeks. The patient denies seeking any specific medical attention for the same. However, for the last one week the patient has been complaining of increasing shortness of breath on minimal exertion and even at rest. The patient denies having any significant chest pain, though. The patient did have mild cough, not bringing up any sputum. No URI symptoms. Some nausea but no vomiting. No abdominal pain and no significant diarrhea. With these symptoms, the patient was evaluated by the ER physician. On arrival in the ER, the patient was afebrile. The patient is currently saturating 96% to 98% on room air. The patient was noted to be in atrial fibrillation with RVR and has been started on heparin per weight-based protocol in addition to the Cardizem. The patient did have a normal white count on presentation with no lymphopenia. Repeat white count did show slight lymphopenia with a lymphocyte count of 0.6. D-dimer 1.74. Liver enzymes are normal. CRP is normal at 7.7. Procalcitonin was 0.08. Urine is negative. Villareal PCR was positive. The patient did have a chest x-ray which shows mild to moderate cardiomegaly and mild patchy atelectasis or early infiltrate. He also had a CT angiogram of the chest completed this afternoon that was negative for PE but did show bilateral effusion and lower lobe pulmonary infiltrate or atelectasis. It did not show the ground-glass opacities COVID-19 infection. The patient is currently being treated with Eliquis, dexamethasone, zinc. Infectious Disease was consulted for further management. The patient did mention feeling better since admission to the hospital. REVIEW OF SYSTEMS: Positive points have been mentioned in HPI. Rest of the systems are negative. PAST MEDICAL HISTORY: Osteoarthritis. No other major illnesses. PAST SURGICAL HISTORY: Appendectomy, tonsillectomy. SOCIAL HISTORY: The patient denies smoking, drinking or drug use. FAMILY HISTORY: No pertinent findings noticed. ALLERGIES: NO KNOWN DRUG ALLERGIES. MEDICATIONS: The patient is currently on Ventolin, Eliquis, vitamin C, vitamin D3, dexamethasone, diltiazem, Lasix, Lopressor, Narcan, zinc sulfate. PHYSICAL EXAMINATION: Blood pressure 117/64, pulse of 101, temperature 98.2. He is 94% on room air. General description is a middle-aged male up in the bed in no distress. No tachypnea or accessory muscle of respiration use. HEENT: Examination shows no pallor or scleral icterus. Oral mucous membrane is dry. NECK: Trachea is central. No thyromegaly. LUNGS: Unlabored breathing. Decreased breath sounds at bases. No wheeze or crackle. HEART: S1, S2. Irregular rhythm. ABDOMEN: Soft. No tenderness. No guarding or rigidity. EXTREMITIES: No edema of the feet. SKIN EXAMINATION: No rash or mass palpable. Neurologically the patient is awake, alert, oriented x3. Mood and affect normal. LABS: Hemoglobin is 14.5, white count 4.5. BUN of 13, creatinine 0.76. Urine is negative. DIAGNOSTIC IMPRESSION AND PLAN: Patient admitted to hospital with increasing shortness of breath which is likely multifactorial, more likely due to his atrial fibrillation with RVR plus/minus a component of COVID-19 infection. However, the patient's symptoms have been going on for more than a couple of weeks and he is out of the therapeutic window for remdesivir. The patient is not significantly hypoxic and is able to maintain his oxygen saturations on room air. PLAN: 1. Patient to continue with Eliquis for his atrial fibrillation, and that will help his COVID-19 infection along with dexamethasone, zinc and ascorbic acid. 2. respiratory support. 3. Will follow his clinical condition and further adjust medication if needed. Thank you for this consultation. Will follow this patient along with you. MMODL / IJN: [id number] /
[2020-08-21] MEDS: ALBUTEROL HFA INHALER INHALATION SCH ×3 (07:57→20:20)
[2020-08-21] MEDS: ZINC SULFATE 220 MG CAP PO SCH ×2 (08:10→12:08)
[2020-08-21] MEDS: ASCORBIC ACID 500 MG TAB PO SCH ×2 (08:10→12:08)
[2020-08-21] MEDS: DILTIAZEM 125 MG in SODIUM CHLORIDE 0.9% 100 ML IV SCH (08:10)
[2020-08-21] MEDS: CHOLECALCIFEROL 25 MCG (1000 IU) TABLET PO SCH ×3 (08:10→12:08)
[2020-08-21 09:19] LABS: Basophils % (A) 0 %; Eosinophils # (A) 0.1 k/uL (0-0.7); Eosinophils % (A) 0 %; HCT 44.8 % (39.0-53.0); HGB 14.3 gm/dL (13.0-17.5); Lymphocytes # (A) 1.7 k/uL (1.0-4.8); Lymphocytes % (A) 16 %; MCH 27.3 pg (25.0-35.0); MCV 85.5 fL (80.0-100.0); Mean Platelet Volume 7.9; Monocytes # (A) 0.9 k/uL (0-1.0); Monocytes % (A) 8 %; Neutrophils # (A) 7.7 k/uL (1.3-7.7); Neutrophils % (A) 74 %; Platelet Count 252 k/uL (150-450); RBC 5.24 m/uL (4.30-5.90); RDW 13.7 % (11.5-15.5); WBC 10.4 k/uL (3.8-10.6)
[2020-08-21 09:33] LABS: African American GFR (CKD) >90 (>60 ml/min/1.73 sqM); Anion Gap 9 mmol/L; Blood Urea Nitrogen 22 mg/dL (9-20); Calcium 8.9 mg/dL (8.4-10.2); Carbon Dioxide 24 mmol/L (22-30); Chloride 107 mmol/L (98-107); Cholesterol 144 mg/dL (<200); Glucose 98 mg/dL (74-99); HDL Cholesterol 37 mg/dL (40-60); LDL Cholesterol,Calculated 94 mg/dL (0-99); Non-African American GFR(CKD) 84 (>60 ml/min/1.73 sqM); Potassium 4.7 mmol/L (3.5-5.1); Sodium 140 mmol/L (137-145); Triglycerides 66 mg/dL (<150)
--- NOTE | 2020-08-21 10:51 | P.PN ---
Subjective Progress Note Date: 08/21/20 60-year-old female patient who presented emergency department because of short ness of breath and tachycardia. The patient was diagnosed having atrial fibrillation several months back. She started having cold-like symptoms and over the past 1 week she has been feeling worsening shortness of breath and orthopnea. Over the past few days, dyspnea got worse to the point where she was unable to lay down flat because of shortness of breath and was having worsening palpitation. Denied having any chest pain. She also notices swelling in lower extremities. No angina. No pleurisy. No previous history of DVT or pulmonary embolism. She came into the emergency department and the patient was found to be in atrial fibrillation. Her vitals were essentially stable and EKG showed rapid ventricular response with a heart rate of 147 with underlying atrial fibrillation rhythm. The white cell count was at 7.7 her hemoglobin of 14.8 and a platelet of 232. Coagulation profile was within normal limits. The patient had a sodium 139, chloride of 4.6 with a serum bicarb of 19, BUN was 21 with a creatinine of 0.8 and the liver function tests are essentially within normal limits, LDH was 584 and a troponin was less than 0.012. ProBNP level was 4610. Over COVID 19 by PCR came back positive. The chest x-ray showed mild to moderate cardiomegaly and mild patchy atelectasis/infiltrate in the lung. The patient was started on Decadron 6 mg by mouth daily. The patient was started on IV heparin. The patient was also started on a Cardizem drip or rate control is currently running at 10 mg an hour. This morning, the patient is still on Cardizem drip and it has been weaned down to 5 mg an hour. The patient was taken off the IV heparin and patient has been switched to oral Eliquis. Echocardiogram is still pending for now. On 08/21/2020 I'm seeing the patient for a follow-up. The patient is a Covid 19 positive case and the same time the patient was in A. fib RVR. He was in decompensated heart failure and atrial fibrillation with RVR at time of admission. Echocardiogram was done and the patient was found to have severe global hypokinesis with an ejection fraction of 20-25%. RV was within normal limits. No evidence of any pulmonary hypertension. No evidence of any segmental wall motion abnormalities. There was an echodensity on the aortic valve likely an area of sclerosis and this also raised the suspicion for vegetation or tumor within the involved area. Note that the patient was subjected to diuretics yesterday. The patient on Lasix 20 mg IV every 12 hours. He has improved clinically and patient is a negative fluid balance of at least 1 L over the past 24 hours. Renal function stable with a creatinine of 0.9. Electrodes are within normal and in terms of his atrial fibrillation, the patient continues to be in A. fib and he was started on long-term articulation with Eliquis 5 mg by mouth twice a day and he was started on metoprolol 50 mg by mouth twice a day for rate control. His current heart rate is controlled at the rate of 75 beats per minute. Cardiology is also on the case. He is still on Decadron 6 mg by mouth on a daily basis. Oxygenation is stable and the patient is currently on room air oxygen with a pulse ox of 97%. IV heparin will be discontinued. Objective - Vital Signs Vital signs: Vital Signs Temp 97.9 F 08/21/20 03:38 Pulse 75 08/21/20 03:38 Resp 16 08/21/20 03:38 BP 146/86 08/21/20 03:38 Pulse Ox 97 08/21/20 03:38 Intake & Output 08/20/20 08/21/20 08/21/20 18:59 06:59 18:59 Intake Total 636 650 Output Total 1450 800 Balance -814 -150 Weight 117 kg Intake: Oral 636 650 Output: Urine 1450 800 Other: Voiding Method Toilet Urinal # Voids 2 1 - Exam General Impression: Alert and oriented x3, not in acute distress HEENT: Normocephalic atraumatic, extra-ocular movements intact, pupils equal and reactive to light bilaterally, mucous membranes moist. Cardiovascular: Irregularly irregular Chest: Able to complete full sentences, no retractions, no tachypnea Abdomen: abdomen soft, non-tender, non-distended, no organomegaly Musculoskeletal: Pulses present and equal in all extremities, 1+ edema bilaterally Motor: no focal deficits noted Neurological: CN II-XII grossly intact, no focal motor or sensory deficits noted Skin: Intact with no visualized rashes Psych: Normal affect and mood - Labs CBC & Chem 7: 08/21/20 07:59 08/21/20 07:59 Labs: Abnormal Lab Results - Last 24 Hours (Table) 08/20/20 08/21/20 Range/Units 11:16 07:59 APTT 31.1 H (22.0-30.0) sec BUN 22 H (9-20) mg/dL HDL Cholesterol 37 L (40-60) mg/dL Assessment and Plan Plan: 1 Acute COVID 19 infection with secondary pneumonia, and the patient symptoms were at least 2-3 weeks ago where he started developing cold-like symptoms and he was never tested for Covid 19. The cold symptoms have essentially recovered. The patient is stable from the Covid 19 standpoint and the patient is completing a total of 10 day course of Decadron 6 mg orally. 2 Chronic atrial fibrillation with RVR secondary to above, the rate is controlled for now with metoprolol and the patient was started on long-term and to coagulation with Eliquis and the patient continues to be in lower rate atrial fibrillation. 3 shortness of breath secondary to above, consider also the possibility of congestion heart failure with elevated proBNP level and increased swelling of the lower extremities, clinically improving with diuretics and rate control regarding his atrial fibrillation 4 systolic heart failure with an ejection fraction of around 20-25% with global hypokinesis. Consider tachycardia-induced cardiomyopathy. Covid-induced cardiomyopathy is felt to be less likely. Rule out underlying ischemic cardiomyopathy. Plan Lasix 20 mg IV every 12 hours out of 24 hours Decadron 6 mg by mouth daily regarding Covid 19 infection, in combination with vitamin C, vitamin D and zinc oxide, out of the window for Remdesivir IV heparin be discontinued and the patient will be placed on Eliquis regarding atrial fibrillation metoprolol 50 mg by mouth twice a day Cardiology consultation is appreciated Monitor oxygenation To follow as the patient continues to improve.
[2020-08-21] MEDS: APIXABAN 5 MG TAB PO SCH ×2 (12:08→20:29)
[2020-08-21] MEDS: FUROSEMIDE 10 MG/ML 2 ML VIAL IV SCH ×2 (12:08→20:29)
[2020-08-21] MEDS: METOPROLOL TARTRATE 50 MG TAB PO SCH ×2 (12:08→20:29)
[2020-08-21] MEDS: dexAMETHasone 2 MG TAB PO SCH (12:09)
[2020-08-21] MEDS: lisinopriL 5 MG TAB PO SCH (12:10)
[2020-08-21] MEDS: SODIUM CHLORIDE 0.9% 1,000 ML IV SCH ×2 (12:10→17:26)
--- NOTE | 2020-08-21 13:59 | P.PN ---
Subjective Progress Note Date: 08/21/20 This is a pleasant 60-year-old male with no significant past medical history. He followed with a network and threat support specialist, Dr. Freed, in [facility] 4 years ago when patient. Patient was in atrial fibrillation at that time he states his network and threat support specialist right him on anticoagulation and had a successful cardioversion to sinus mechanism. We have been asked to see in consultation for Atrial fib rillation with RVR. Patient is seen and examined at bedside apparent distress. Patient states that he's been shortness of breath and flu like symptoms for 3 weeks, found to be COVID-19 positive. His flu like systems resolved, however, he continued to have shortness of breath without improvement and presented to the emergency department. He endorses over a week having symptoms of orthopnea, getting short of breath when lying flat in bed. Patient denies chest pain, palpitations, lower extremity edema, lightheadedness, syncope. Patient was a former smoker and quit 6 years ago. Patient denies history of diabetes, stroke, [place], or coronary artery disease. Laboratory data reviewed, Covid 19 positive. EKG reveals atrial fibriallation with rapid ventricular response, HR 140s. Patient started on cardizem drip and heparin drip. 08/21/20: Patient seen in examined lying with head elevated in bed. No complaints. Has intermittent palpitations. Denies chest pain, shortness of breath, nausea, abdo burton pain. BP 127/91, heart 69, respirations 16, SpO2 9497 percent on room air, patient afebrile. Laboratory data reviewed, patient sodium 140, potassium 4.7, creatinine is stable at 0.98. Triglycerides 66, Cholesterol 144, LDL 94, HDL 37. Telemetry tracings indicate atrial fibrillation, HR improved to 70s- low 100s. TTE 08/20/20: Severe global hypokinesis of LV. Left ventricular systolic function severely impaired with, an EF between 20-25%. An echodensity on the aortic valve likely represents aortic sclerosis but a vegetation or tumor cannot be totally excluded. Patient has been maintained on metoprolol tartrate 50mg BID, Eliquis 5mg BID PHYSICAL EXAMINATION CONSTITUTIONAL: No apparent distress. HEENT: Head is normocephalic. Pupils are equal, round. Sclerae anicteric. Mucous membranes of the mouth are moist. No JVD. No carotid bruit. CHEST EXAMINATION: Lungs are clear to auscultation. No chest wall tenderness is noted on palpation or with deep breathing. HEART EXAMINATION: Irregular rate and rhythm. S1, S2 heard. No murmurs, gallops or rub. ABDOMEN: Soft, nontender. Positive bowel sounds. EXTREMITIES: 2+ peripheral pulses, no lower extremity edema and no calf tenderne ss. SKIN: intact, no wounds, no rashes NEUROLOGIC EXAMINATION: Patient is awake, alert and oriented x3. ASSESSMENT -Paroxysmal atrial fibrillation - [id number] 2 (patient with hypertension during admission, however, no diagnosis) -Acute systolic heart failure with reduced ejection fraction - atrial fibrillation tachycardia induced mostly likely vs COVID-19 induced cardiomyopathy -COVID-19 infection -Obesity BMI 33.7 PLAN -Continue metoprolol tartrate 50mg BID -Start lisinopril 5mg daily -Continue Eliquis and send to pharmacy and correlate with case management to check cost. Patient could be of benefit of KAJAL Cardioversion Nurse Practitioner note has been reviewed, I agree with a documented findings and plan of care. Patient was seen and examined. Objective - Vital Signs Vital signs: Vital Signs Temp 97.9 F 08/21/20 03:38 Pulse 75 08/21/20 13:10 Resp 16 08/21/20 13:10 BP 127/91 08/21/20 08:00 Pulse Ox 94 L 08/21/20 08:00 Intake & Output 08/20/20 08/21/20 08/21/20 18:59 06:59 18:59 Intake Total 636 650 236 Output Total 1450 800 Balance -814 -150 236 Weight 117 kg Intake: Oral 636 650 236 Output: Urine 1450 800 Other: Voiding Method Toilet Toilet Urinal Urinal # Voids 2 1 1 - Labs CBC & Chem 7: 08/21/20 07:59 08/21/20 07:59 Labs: Abnormal Lab Results - Last 24 Hours (Table) 08/21/20 Range/Units 07:59 BUN 22 H (9-20) mg/dL HDL Cholesterol 37 L (40-60) mg/dL
--- NOTE | 2020-08-21 14:00 | XR ---
EXAMINATION TYPE: XR chest 1V portable DATE OF EXAM: 08/21/2020 COMPARISON: Prior chest x-ray 08/19/2020, chest CT 08/20/2020 HISTORY: Congestive heart failure TECHNIQUE: Single frontal view of the chest is obtained. FINDINGS: Patchy bilateral basilar airspace disease is vague. There is no pneumothorax. Heart is enl arged. Aorta is dense and aneurysmal. IMPRESSION: Correlate for pneumonia, edema, small pleural effusions.
[2020-08-21] MEDS ORDERED: METOPROLOL TARTRATE 50 MG TAB PO STA (14:54)
--- NOTE | 2020-08-21 15:33 | PN ---
PROGRESS NOTE DATE OF SERVICE: 08/21/2020 This 60-year-old gentleman admitted with COVID-19. The patient also had CHF with acute on chronic exacerbation possibility of alcoholic related cardiomyopathy or COVID related cardiomyopathy is a possibility. Multiple consultants are following the patient closely. Patient is in atrial fibrillation. Patient is on diltiazem at this time. PAST MEDICAL HISTORY: Reviewed. REVIEW OF SYSTEMS: CARDIOVASCULAR SYSTEM: As mentioned earlier. RESPIRATORY SYSTEM: As mentioned earlier. GI: as mentioned earlier. : No dysuria. NERVOUS SYSTEM: No numbness or weakness. CURRENT MEDICATIONS: Current medications are reviewed and include: Ventolin, Eliquis, vitamin C, Lasix, Zestril. Doses are reviewed. PHYSICAL EXAMINATION: The patient is alert and oriented x3. Pulse is 69, blood pressure 127/91, respirations 16, temperature 97.9, pulse ox 94% on room air. HEENT: Conjunctivae normal. NECK: No jugular venous distention. CARDIOVASCULAR: S1, S2 muffled. RESPIRATORY: Breath sounds diminished at the bases. A few scattered rhonchi. ABDOMEN: Soft, nontender. LEGS: No edema, no swelling. NERVOUS SYSTEM: No focal deficits. LABS: CBC within normal limits and D-dimer is 0.98. Chest x-ray reviewed. ASSESSMENT: 1. Atrial fibrillation with fast ventricular rate, present on admission. 2. Acute COVID-19 pneumonia with acute COVID-19 infection with orthopnea, present on admission. 3. Congestive heart failure acute exacerbation acute on chronic systolic dysfunction ejection fraction 20% to 30%. 4. 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 5. History of appendectomy. 6. History of tonsillectomy. 7. Decreased CO2. 8. Increased BUN. 9. Obesity with body mass index 31.7. RECOMMENDATIONS AND DISCUSSION: Recommend to continue current medications, continue symptomatic treatment. Otherwise, the rest of medications. Continue the diuretics. Follow closely with Cardiology. The patient is on limited fluid intake to 1200 mL per 24 hours. Otherwise I would also recommend the patient follow up closely with Dr. Sevilla in the outpatient setting. Otherwise, continue the conservative line of management for COVID-19 at this time. Prognosis guarded. Further recommendations to follow. MMODL / IJN: [id number] / [facility]
--- NOTE | 2020-08-21 23:31 | PN ---
PROGRESS NOTE DATE OF SERVICE: 08/21/2020. REASON FOR FOLLOWUP: Covid-19 infection. INTERVAL HISTORY: Patient is currently afebrile. The patient is breathing comfortably, currently on room air. The patient denies having any chest pain or shortness of breath. Occasional cough. No nausea, vomiting, abdominal pain or diarrhea. PHYSICAL EXAMINATION: Blood pressure 112/62 with a pulse of 80. Temperature 97.9. He is 98% on room air. General description is a middle-aged male up in the bed in no distress. Respiratory system: Unlabored breathing, decreased intensity of breath sounds. No wheeze. Heart: S1, S2. Regular rate and rhythm. Abdomen soft, no tenderness. EXTREMITIES: No edema of the feet. LABS: Hemoglobin 14.1, white count 10.4, BUN of 22, creatinine 0.98. DIAGNOSTIC IMPRESSION/PLAN: Patient admitted to the hospital with increasing shortness of breath, more likely due to his atrial fibrillation with RVR, possible cardiac decompensation . Hospital with plus/minus component of Covid-19 infection in this patient currently not requiring supplemental oxygen does not qualify for Remdesivir, covered with Eliquis, Dexamethasone, zinc and ascorbic acid to continue while monitoring clinical course closely. Continue supportive care. MMODL / IJN: [id number] /
[2020-08-22 08:39] LABS: Basophils % (A) 0 %; Eosinophils % (A) 0 %; HCT 44.7 % (39.0-53.0); HGB 14.6 gm/dL (13.0-17.5); Lymphocytes # (A) 1.3 k/uL (1.0-4.8); Lymphocytes % (A) 12 %; MCH 28.1 pg (25.0-35.0); MCHC 32.7 g/dL (31.0-37.0); MCV 85.8 fL (80.0-100.0); Mean Platelet Volume 7.7; Monocytes # (A) 0.7 k/uL (0-1.0); Monocytes % (A) 7 %; Neutrophils # (A) 8.5 k/uL (1.3-7.7); Neutrophils % (A) 80 %; Platelet Count 260 k/uL (150-450); RBC 5.21 m/uL (4.30-5.90); RDW 13.5 % (11.5-15.5); WBC 10.6 k/uL (3.8-10.6)
[2020-08-22 08:51] LABS: African American GFR (CKD) >90 (>60 ml/min/1.73 sqM); Anion Gap 10 mmol/L; Blood Urea Nitrogen 28 mg/dL (9-20); Calcium 8.9 mg/dL (8.4-10.2); Carbon Dioxide 23 mmol/L (22-30); Chloride 105 mmol/L (98-107); Glucose 110 mg/dL (74-99); Non-African American GFR(CKD) 88 (>60 ml/min/1.73 sqM); Potassium 4.3 mmol/L (3.5-5.1); Sodium 138 mmol/L (137-145)
[2020-08-22] MEDS: ALBUTEROL HFA INHALER INHALATION SCH ×2 (08:55→12:59)
[2020-08-22 09:38] VITALS: RESP 16
[2020-08-22] MEDS: APIXABAN 5 MG TAB PO SCH (09:39)
[2020-08-22] MEDS: ASCORBIC ACID 500 MG TAB PO SCH (09:39)
[2020-08-22] MEDS: lisinopriL 5 MG TAB PO SCH (09:40)
[2020-08-22] MEDS: dexAMETHasone 2 MG TAB PO SCH (09:40)
[2020-08-22] MEDS: CHOLECALCIFEROL 25 MCG (1000 IU) TABLET PO SCH (09:40)
[2020-08-22] MEDS: ZINC SULFATE 220 MG CAP PO SCH (09:40)
[2020-08-22] MEDS: FUROSEMIDE 10 MG/ML 2 ML VIAL IV SCH (09:40)
[2020-08-22] MEDS: METOPROLOL TARTRATE 50 MG TAB PO SCH (09:40)
[2020-08-22] MEDS: DILTIAZEM 125 MG in SODIUM CHLORIDE 0.9% 100 ML IV SCH (10:09)
--- NOTE | 2020-08-22 10:23 | P.PN ---
Subjective Progress Note Date: 08/22/20 60-year-old female patient who presented emergency department because of short ness of breath and tachycardia. The patient was diagnosed having atrial fibrillation several months back. She started having cold-like symptoms and over the past 1 week she has been feeling worsening shortness of breath and orthopnea. Over the past few days, dyspnea got worse to the point where she was unable to lay down flat because of shortness of breath and was having worsening palpitation. Denied having any chest pain. She also notices swelling in lower extremities. No angina. No pleurisy. No previous history of DVT or pulmonary embolism. She came into the emergency department and the patient was found to be in atrial fibrillation. Her vitals were essentially stable and EKG showed rapid ventricular response with a heart rate of 147 with underlying atrial fibrillation rhythm. The white cell count was at 7.7 her hemoglobin of 14.8 and a platelet of 232. Coagulation profile was within normal limits. The patient had a sodium 139, chloride of 4.6 with a serum bicarb of 19, BUN was 21 with a creatinine of 0.8 and the liver function tests are essentially within normal limits, LDH was 584 and a troponin was less than 0.012. ProBNP level was 4610. Over COVID 19 by PCR came back positive. The chest x-ray showed mild to moderate cardiomegaly and mild patchy atelectasis/infiltrate in the lung. The patient was started on Decadron 6 mg by mouth daily. The patient was started on IV heparin. The patient was also started on a Cardizem drip or rate control is currently running at 10 mg an hour. This morning, the patient is still on Cardizem drip and it has been weaned down to 5 mg an hour. The patient was taken off the IV heparin and patient has been switched to oral Eliquis. Echocardiogram is still pending for now. On 08/21/2020 I'm seeing the patient for a follow-up. The patient is a Covid 19 positive case and the same time the patient was in A. fib RVR. He was in decompensated heart failure and atrial fibrillation with RVR at time of admission. Echocardiogram was done and the patient was found to have severe global hypokinesis with an ejection fraction of 20-25%. RV was within normal limits. No evidence of any pulmonary hypertension. No evidence of any segmental wall motion abnormalities. There was an echodensity on the aortic valve likely an area of sclerosis and this also raised the suspicion for vegetation or tumor within the involved area. Note that the patient was subjected to diuretics yesterday. The patient on Lasix 20 mg IV every 12 hours. He has improved clinically and patient is a negative fluid balance of at least 1 L over the past 24 hours. Renal function stable with a creatinine of 0.9. Electrodes are within normal and in terms of his atrial fibrillation, the patient continues to be in A. fib and he was started on long-term articulation with Eliquis 5 mg by mouth twice a day and he was started on metoprolol 50 mg by mouth twice a day for rate control. His current heart rate is controlled at the rate of 75 beats per minute. Cardiology is also on the case. He is still on Decadron 6 mg by mouth on a daily basis. Oxygenation is stable and the patient is currently on room air oxygen with a pulse ox of 97%. IV heparin will be discontinued. 08/22/2020 the patient is being seen for a follow-up. He is still in atrial fibrillation. His rate is controlled with metoprolol 50 mg by mouth twice a day and his is started also on long-term articulation with Eliquis. He was found to have systolic heart failure with an ejection fraction of 20-25% and an KARINA inhibitor was also added and the patient is taking Zestril 5 mg by mouth daily. In terms of his Covid 19 infection, the patient is very much stable on Decadron and he is going to complete a total of 10 day course. He is on room air oxygen. Pulse ox 97%. Is off IV heparin and he is currently on Eliquis. No nausea. No vomiting. No diarrhea. No abdominal pain. No chest pain. No other complaints. Blood work is essentially stable and within normal limits. Electrodes are normal. The white cell count is at 10.6 and his lymphopenia has recovered. Objective - Vital Signs Vital signs: Vital Signs Temp 97.2 F L 08/22/20 08:00 Pulse 72 08/22/20 08:00 Resp 16 08/22/20 08:00 BP 112/72 08/22/20 08:00 Pulse Ox 98 08/22/20 08:00 Intake & Output 08/21/20 08/22/20 08/22/20 18:59 06:59 18:59 Intake Total 1294 600 Output Total 1100 Balance 1294 -500 Weight 117 kg Intake: Oral 1294 600 Output: Urine 1100 Other: Voiding Method Toilet Toilet Urinal Urinal # Voids 3 - Exam General Impression: Alert and oriented x3, not in acute distress HEENT: Normocephalic atraumatic, extra-ocular movements intact, pupils equal and reactive to light bilaterally, mucous membranes moist. Cardiovascular: Irregularly irregular Chest: Able to complete full sentences, no retractions, no tachypnea Abdomen: abdomen soft, non-tender, non-distended, no organomegaly Musculoskeletal: Pulses present and equal in all extremities, 1+ edema bilaterally Motor: no focal deficits noted Neurological: CN II-XII grossly intact, no focal motor or sensory deficits noted Skin: Intact with no visualized rashes Psych: Normal affect and mood - Labs CBC & Chem 7: 08/22/20 07:08 08/22/20 07:08 Labs: Abnormal Lab Results - Last 24 Hours (Table) 08/21/20 08/22/20 08/22/20 Range/Units 13:24 07:08 07:08 Neutrophils # 8.5 H (1.3-7.7) k/uL D-Dimer 0.98 H (<0.60) mg/L FEU BUN 28 H (9-20) mg/dL Glucose 110 H (74-99) mg/dL Assessment and Plan Plan: 1 Acute COVID 19 infection with secondary pneumonia, and the patient symptoms were at least 2-3 weeks ago where he started developing cold-like symptoms and he was never tested for Covid 19. The cold symptoms have essentially recovered. The patient is stable from the Covid 19 standpoint and the patient is completing a total of 10 day course of Decadron 6 mg orally. Remains stable from the pulmonary standpoint on room in oxygen with a pulse ox of 97%. 2 Chronic atrial fibrillation with RVR secondary to above, the rate is controlled for now with metoprolol and the patient was started on long-term and to coagulation with Eliquis and the patient continues to be in lower rate atrial fibrillation. 3 shortness of breath secondary to above, consider also the possibility of congestion heart failure with elevated proBNP level and increased swelling of the lower extremities, clinically improving with diuretics and rate control regarding his atrial fibrillation 4 systolic heart failure with an ejection fraction of around 20-25% with global hypokinesis. Consider tachycardia-induced cardiomyopathy. Covid-induced cardiomyopathy is felt to be less likely. Rule out underlying ischemic cardiomyopathy. The patient is currently on a combination of metoprolol and Zestril. The valve findings as reported by cardiology is most likely calcification rather than a vegetation. No need for KAJAL at this point in time. Plan Lasix 20 mg IV every 12 hours and the patient can be potentially switch to oral Lasix Decadron 6 mg by mouth daily regarding Covid 19 infection, in combination with vitamin C, vitamin D and zinc oxide, out of the window for Remdesivir Anticoagulation with Eliquis regarding atrial fibrillation metoprolol 50 mg by mouth twice a day, the patient was also started on Zestril 5 mg by mouth daily Cardiology consultation is appreciated Monitor oxygenation To follow as the patient continues to improve. After verbal discharged home today. Outpatient follow-up with cardiology. Outpatient follow-up with pulmonary.
--- NOTE | 2020-08-22 11:16 | P.PN ---
Subjective This is a pleasant 60-year-old male with no significant past medical history. He followed with a medical collections specialist, Dr. Freed, in [facility] 4 years ago when patient. Patient was in atrial fibrillation at that time he states his medical collections specialist right him on anticoagulation and had a successful cardioversion to sinus mechanism. We have been asked to see in consultation for Atrial fibrillation with RVR. Patient is seen and examined at bedside apparent distress. Patient states that he's been shortness of breath and flu like symptoms for 3 weeks. His flu like systems resolved, however, he continued to have shortness of breath without improvement and presented to the emergency department. He endorses over a week having symptoms of orthopnea, getting short of breath when lying flat in bed. Patient denies chest pain, palpitations, lower extremity edema, lightheadedness, syncope. Patient was a former smoker and quit 6 years ago. Patient denies history of diabetes, stroke, [place], or coronary artery disease. Laboratory data reviewed, Covid 19 positive. EKG reveals atrial fibrillation with rapid ventricular response, HR 140s. Patient was started on cardizem drip and heparin drip and admitted to cardiac step down unit. TTE 08/20/20: Severe global hypokinesis of LV. Left ventricular systolic function severely impaired with, an EF between 20-25%. An echodensity on the aortic valve likely represents aortic sclerosis but a vegetation or tumor cannot be totally excluded. 08/22/20: Patient seen in examined lying with head elevated in bed. No complaints. Has intermittent palpitations. Denies chest pain, shortness of breath, nausea, abdominal pain. BP 112/72, heart 72, respirations 16, SpO2 98% on room air, patient afebrile. Laboratory data reviewed, hemoglobin 14.6, WBC 10.6, sodium 138, potassium 4.3, renal function is stable at 0.94. Telemetry tracings indicate atrial fibrillation, HR improved to 60s-80s . Metoprolol tartrate increased to 100mg BID yesterday, Lisinopril 5mg daily, and continued on Eliquis 5mg BID PHYSICAL EXAMINATION CONSTITUTIONAL: No apparent distress. HEENT: Head is normocephalic. Pupils are equal, round. Sclerae anicteric. Mucous membranes of the mouth are moist. No JVD. No carotid bruit. CHEST EXAMINATION: Lungs are clear to auscultation. No chest wall tenderness is noted on palpation or with deep breathing. HEART EXAMINATION: Irregular rate and rhythm. S1, S2 heard. No murmurs, gallops or rub. ABDOMEN: Soft, nontender. Positive bowel sounds. EXTREMITIES: 2+ peripheral pulses, no lower extremity edema and no calf tenderness. SKIN: intact, no wounds, no rashes NEUROLOGIC EXAMINATION: Patient is awake, alert and oriented x3. ASSESSMENT -Paroxysmal atrial fibrillation - [id number] 2 (patient with hypertension during admission, however, no diagnosis) -Acute systolic heart failure with reduced ejection fraction - atrial fibrillation tachycardia induced mostly likely vs COVID-19 induced cardiomyopathy -COVID-19 infection -Obesity BMI 33.7 PLAN -Patient stable for discharge from cardiology perspective. Patient will follow up in clinic with Dr. Ayers. -Continue metoprolol tartrate 100mg BID, Lisinopril 5mg daily and Eliquis BID Nurse Practitioner note has been reviewed, I agree with a documented findings and plan of care. Patient was seen and examined. Objective - Vital Signs Vital signs: Vital Signs Temp 98.1 F 08/22/20 04:00 Pulse 67 08/22/20 04:00 Resp 18 08/22/20 04:00 BP 140/70 08/22/20 04:00 Pulse Ox 97 08/22/20 04:00 Intake & Output 08/21/20 08/21/20 08/22/20 06:59 18:59 06:59 Intake Total 650 1294 600 Output Total 800 1100 Balance -150 1294 -500 Weight 117 kg Intake: Oral 650 1294 600 Output: Urine 800 1100 Other: Voiding Method Toilet Toilet Toilet Urinal Urinal Urinal # Voids 1 3 - Labs CBC & Chem 7: 08/22/20 07:08 08/22/20 07:08 Labs: Abnormal Lab Results - Last 24 Hours (Table) 08/21/20 08/21/20 Range/Units 07:59 13:24 D-Dimer 0.98 H (<0.60) mg/L FEU BUN 22 H (9-20) mg/dL HDL Cholesterol 37 L (40-60) mg/dL
[2020-08-22 12:36] VITALS: BP 124/94; PULSE 58; TEMP 97.8
--- NOTE | 2020-08-22 15:25 | P.PN ---
Subjective Progress Note Date: 08/22/20 HISTORY OF PRESENT ILLNESS This is a 60-year-old male followed for: 19 infection. Patient did n ot qualify for Remdesivir covered with eliquis, dexamethasone, zinc and a cervix acid. Patient denies having any chest pain, no shortness of breath or cough. He denies any abdominal pain. No nausea vomiting diarrhea. He has been afebrile. Heart rate 72, blood pressure 112/72, pulse ox 90% on room air. CBC is unremarkable. Creatinine 0.94. PHYSICAL EXAMINATION Gen: This is a 60-year-old male who showed resting in bed and appears to be comfortable and in no acute distress. No respiratory distress noted. HEENT: Head is atraumatic, normocephalic. Pupils equal, round. Sclerae is anicte jovanny. NECK: Supple. No JVD. No lymphadenopathy. LUNGS: Clear to auscultation. No wheezes or rhonchi. No intercostal retractions. HEART: Regular rate and rhythm. No murmur. ABDOMEN: Soft. Bowel sounds are present. No masses. No tenderness. EXTREMITIES: No pedal edema. No calf tenderness. NEUROLOGICAL: Patient is awake, alert and oriented x3. ASSESSMENT Covid 19 infection PLAN Continue eliquis, vitamin C, vitamin D, zinc, dexamethasone Further recommendations as patient progresses The above dictated assessment and findings were discussed with Dr. Gonzalez. The impression and plan of care have been directed as dictated. Sara Harp nurse practitioner acting as scribe for Dr. Gonzalez. Objective - Vital Signs Vital signs: Vital Signs Temp 97.2 F L 08/22/20 08:00 Pulse 72 08/22/20 08:00 Resp 16 08/22/20 08:00 BP 112/72 08/22/20 08:00 Pulse Ox 98 08/22/20 08:00 Intake & Output 08/21/20 08/22/20 08/22/20 18:59 06:59 18:59 Intake Total 1294 600 368 Output Total 1100 Balance 1294 -500 368 Weight 117 kg Intake: Oral 1294 600 368 Output: Urine 1100 Other: Voiding Method Toilet Toilet Toilet Urinal Urinal Urinal # Voids 3 - Labs CBC & Chem 7: 08/22/20 07:08 08/22/20 07:08 Labs: Abnormal Lab Results - Last 24 Hours (Table) 08/21/20 08/22/20 08/22/20 Range/Units 13:24 07:08 07:08 Neutrophils # 8.5 H (1.3-7.7) k/uL D-Dimer 0.98 H (<0.60) mg/L FEU BUN 28 H (9-20) mg/dL Glucose 110 H (74-99) mg/dL
--- NOTE | 2020-08-22 21:36 | DS ---
DISCHARGE SUMMARY DATE OF SERVICE: 08/22/2020 FINAL DIAGNOSES: 1. Atrial fibrillation with fast ventricular rate present on admission. 2. Acute Covid 19 infection with orthopnea, present on admission. 3. Congestive heart failure, acute exacerbation with acute on chronic systolic dysfunction, ejection fraction 25-30 percent. 4. 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 5. History of appendectomy. 6. History of tonsillectomy. 7. Decreased CO2. 8. Increased BUN. 9. Obesity with body mass index 31.7. DISCHARGE DISPOSITION: The patient being discharged in stable condition. Guarded prognosis. Total time taken 35 minutes. Discharge cleared by Cardiology. HISTORY OF PRESENT ILLNESS: This 60-year-old gentleman with a past medical history of multiple medical problems was admitted with shortness of breath and as well as Covid 19 and atrial fibrillation with fast ventricular rate. Patient treated with Cardizem drip. Cardiology saw the patient. Patient improved significantly. Infectious Disease also saw the patient. Covid 19 appears to be stable at this time. The patient is being closely monitored. Ejection fraction found to be 20-30 percent. Recommend close followup in the outpatient setting. Also recommend the patient avoid strenuous activity at this time and continue to follow up in the outpatient with cardiology and primary physician before going to full active work. On exam, vitals are stable. Cardiovascular S1, S2. Abdomen soft. Nervous system: No numbness, weakness. DISCHARGE ADVICE AND MEDICATIONS: 1. Diet is cardiac diet. 2. Activity limited until followup. 3. Follow up with Dr. Sevilla in 2-3 days. 4. Follow up with Dr. Ayers in 2 weeks. 5. Follow up with Dr. Reyes as recommended. DISCHARGE MEDICATIONS: 1. Aleve 440 mg p.o. b.i.d. 2. Ibuprofen p.r.n. 3. Eliquis 5 mg p.o. b.i.d. 4. Hexadrol 6 mg p.o. daily for more days. 5. Lasix 40 mg p.o. daily. 6. Lopressor 100 mg p.o. b.i.d. 7. Oral zinc 220 mg p.o. daily. 8. Ventolin 2 puffs t.i.d. and p.r.n. 9. Vitamin C 1000 mg daily. 10.Vitamin D3 1000 units daily. 11.Zestril 5 mg p.o. daily. Once again, the patient is being discharged in stable with guarded prognosis. MMODL / IJN: [id number] /
[2020-08-23] MEDS ORDERED: FUROSEMIDE 40 MG TAB PO SCH (09:00)
== END 2020-08-22 15:21 | disposition home or self-care (01) | DRG 177 ==
LOC: EC 14:49 → 3SCARD 16:56
PROVIDERS: ADMIT Hospitalist; ATTEND Hospitalist
DX: U07.1 COVID-19 (principal); J12.82 Pneumonia due to coronavirus disease 2019; I50.23 Acute on chronic systolic (congestive) heart failure; J98.11 Atelectasis; E87.2 Acidosis; D72.810 Lymphocytopenia; E66.9 Obesity, unspecified; I11.0 Hypertensive heart disease with heart failure; I48.0 Paroxysmal atrial fibrillation; J00 Acute nasopharyngitis [common cold]; Z68.33 Body mass index [BMI] 33.0-33.9, adult; Z79.01 Long term (current) use of anticoagulants; Z79.899 Other long term (current) drug therapy; Z87.891 Personal history of nicotine dependence; Z90.49 Acquired absence of other specified parts of digestive tract; Z90.79 Acquired absence of other genital organ(s)
CPT/HCPCS: 36415; 71045; 71275; 80048; 80053; 80061; 81003; 82728; 83615; 83735; 83880; 84145; 84443; 84484; 85025; 85379; 85610; 85652; 85730; 86140; 87635; 93005; 93306; 94640; 96374; 96375; 99285

== ENCOUNTER → 2020-09-26 | Outpatient (CLI) | payer OTHER ==
[2020-09-26 15:24] LABS: HCT 41.3 % (39.0-53.0); MCH 27.5 pg (25.0-35.0); MCHC 33.9 g/dL (31.0-37.0); MCV 81.2 fL (80.0-100.0); Mean Platelet Volume 7.4; Platelet Count 205 k/uL (150-450); RBC 5.08 m/uL (4.30-5.90); WBC 7.7 k/uL (3.8-10.6)
[2020-09-26 15:32] LABS: Potassium 4.8 mmol/L (3.5-5.1)
== END | disposition home or self-care (01) ==
LOC: LABPAT 14:48
PROVIDERS: ATTEND Internal Medicine
DX: Z01.818 Encounter for other preprocedural examination (principal); I48.11 Longstanding persistent atrial fibrillation
CPT/HCPCS: 80051; 82565; 84520; 85027

== ENCOUNTER 2020-10-02 08:50 | Day surgery (SDC) | payer OTHER ==
[2020-09-29 10:47] VITALS: BMI 32.5
[~2020-10-02 08:50] MED LIST: ALPRAZolam 0.25 MG TAB PO PRN; ALPRAZolam 0.5 MG TAB PO PRN; ASPIRIN 325 MG TAB PO ONE; ATORVASTATIN 80 MG TAB PO ONE; HEPARIN SODIUM,PORCINE 10,000 UNIT in SODIUM CHLORIDE 0.9% 1,000 ML IRRIGATION PRN; HEPARIN SODIUM,PORCINE 2,500 UNIT in SODIUM CHLORIDE 0.9% 250 ML IRRIGATION PRN; LACTATED RINGERS 1,000 ML IV SCH; LIDOCAINE 1% (10MG/ML) FOR IV START INTRADERMA PRN; NITROGLYCERIN SL TABS 0.4 MG TAB SUBLINGUAL PRN; SODIUM CHLORIDE 0.9% 1,000 ML IV SCH; SODIUM CHLORIDE 0.9% 1,000 ML in EMPTY BAG 1 BAG IV ONE
[2020-10-02] MEDS ORDERED: SODIUM CHLORIDE 0.9% 1,000 ML IV ONE ×3 (09:16→11:22)
[2020-10-02 09:35] VITALS: TEMP 97.1
[2020-10-02] MEDS ORDERED: fentaNYL (PF) 50 MCG/ML 2 ML AMP IV ONE (10:15)
[2020-10-02] MEDS ORDERED: MIDAZOLAM 2 MG/2 ML VIAL IV ONE (10:15)
[2020-10-02] MEDS ORDERED: LIDOCAINE 1% INJ 10MG/ML (20 ML MDV) SQ ONE (10:19)
[2020-10-02] MEDS ORDERED: VERAPAMIL SYRINGE (5 MG/10 ML) INTRAARTER ONE (10:23)
[2020-10-02] MEDS ORDERED: APIXABAN 5 MG TAB PO ONE (10:37)
[2020-10-02] MEDS ORDERED: IOPAMIDOL-370 125ML BTL INJ ONE (10:38)
--- NOTE | 2020-10-02 10:44 | P.CARDCATH ---
Description of Procedure: PROCEDURES PERFORMED: Left heart catheterization, bilateral coronary angiography INDICATION: Cardiomyopathy HISTORY: Patient is a pleasant 60-year-old male with history of mild alcohol use, hypertension, new onset of atrial fibrillation with RVR and cardiomyopathy. Patient initially had cardiomyopathy with ejection fraction 25% thought to be attributed to atrial fibrillation however repeat showed continued decrease ejection fraction 40-45% and therefore heart catheterization was recommended. He has been symptomatic feeling short of breath with fairly minimal activity. CONSENT:I have discussed the risks, benefits and alternative therapies for the above-mentioned procedure and for both sedation/analgesia as well as necessary blood product administration, if indicated, as they pertain to this patient. The patient has indicated understanding and acceptance of the risks and procedures discussed. PROCEDURE: After the risks, benefits and alternatives of the above mentioned procedure explained in detail with the patient, informed consent was obtained. Patient was taken to the catheterization lab and prepped and draped in usual fashion. 1% lidocaine was used to anesthetize the right radial artery. A 6- [place] sheath was placed in the right radial artery using modified Seldinger technique. Left coronary angiography was performed with a 5-[place] JL 3.5 catheter and right coronary angiography was performed with a 5-[place] JR5 catheter in various views. A 5-[place] FR5 catheter was inserted into the left ventricle and pressure measurements were obtained. The right radial sheath was removed and a TR band was placed with hemostasis achieved. The patient tolerated the procedure well. Patient was transported back to the post catheterization holding area in stable condition. Conscious Sedation: Patient was monitored under the direct supervision of vision of myself for conscious sedation using Versed and fentanyl for a total duration of 18 minutes HEMODYNAMICS: Aorta: 142/90 LV: 136/11 LVEDP 14 SELECTIVE CORONARY ARTERIOGRAPHY: LEFT MAIN: The left main is a large caliber vessel which bifurcates into the LAD and circumflex. There is no significant stenosis. LEFT ANTERIOR DESCENDING CORONARY ARTERY: LAD is a large caliber vessel which wraps around to the apex. There is no significant stenosis. LEFT CIRCUMFLEX CORONARY ARTERY: Left circumflex is a moderate caliber vessel without significant stenosis. RIGHT CORONARY ARTERY: The right coronary artery is a large caliber vessel which gives off a PDA and PLV branch and is the dominant vessel. There is no significant stenosis. FINAL IMPRESSION: 1. Normal coronary arteries as described above. 2. Normal left-sided filling pressures. PLAN: 1. Aggressive risk factor modification per most recent ACC/AHA guidelines. 2. Follow-up in the office in 1-2 weeks.
[2020-10-02] MEDS ORDERED: MIDAZOLAM 2 MG/2 ML VIAL ONE (11:18)
[2020-10-02] MEDS ORDERED: KETAMINE 10 MG/ML 20 ML VIAL ONE (11:18)
[2020-10-02] MEDS ORDERED: PROPOFOL 10 MG/ML 20 ML VIAL IV ONE (11:18)
[2020-10-02] MEDS ORDERED: LIDOCAINE 1% INJ 10MG/ML (20 ML MDV) ONE (11:18)
[2020-10-02 12:10] VITALS: RESP 16
[2020-10-02] MEDS ORDERED: SODIUM CHLORIDE 0.9% 1,000 ML IV SCH (12:40)
--- NOTE | 2020-10-02 13:33 | P.TEE ---
Description of Procedure(s): Procedure performed: Transesophageal Echocardiogram with color flow doppler, pulsed wave doppler and continuous wave doppler, attempted cardioversion Moderate conscious sedation: Moderate conscious sedation was supplied by anesthesia, see separate report Complications: none Indications: Symptomatic Afib History: Patient is a pleasant 60-year-old male with history of obesity, hypertension, atrial fibrillation and nonischemic cardiomyopathy. Initially presented with heart failure type symptoms and A. fib with RVR and was found to have new decrease in EF 20-25%. His A. fib was better controlled and mild improvement in ejection fraction to 40-45% however still has been having dyspnea on exertion and feeling fatigued and therefore KAJAL/cardioversion was recommended for symptomatic atrial fibrillation. PROCEDURE: After the risks, benefits and alternatives of the above mentioned procedure was explained in detail with the patient, informed consent was obtained. Patient was brought to the lab in a fasting state. Patient was given sedation by anesthesia. The throat was sprayed with Hurricane to anesthetize the throat. A lubricated Omni probe was then introduced into the esophagus and stomach and multiple views were obtained. 2D echo with color flow doppler, pulsed wave doppler and continuous wave doppler was utilized. Agitated saline bubbles were injected to assess for any intra-atrial shunt. The probe was then removed. Patient was attempted to be cardioverted with 200J, 300J and 360J each of which was unsuccessful. Patient tolerated the procedure well. Patient was transferred to the post procedure area in stable and satisfactory condition. FINDINGS: 1. The aortic valve is normal-appearing and tricuspid. There is trace aortic insufficiency and no aortic stenosis. 2. The mitral valve appears be normal with mild to moderate mitral regurgitation. 3. Tricuspid valve appears to be normal with moderate to severe tricuspid regurgitation. 4. There is a long tunneled PFO by both color flow with left to right shunt and by agitated saline. 5. Left atrial appendage is free of clot. 6. Left ventricular ejection fraction is 35% with global hypokinesis. 7. Left atrium is moderately dilated 8. Ascending aortic root dilation measuring 3.7 cm
[2020-10-02 16:51] VITALS: BP 142/87; PULSE 58
== END 2020-10-02 16:00 | disposition home or self-care (01) ==
LOC: CATHCVL 08:50
PROVIDERS: ATTEND Internal Medicine
DX: I42.9 Cardiomyopathy, unspecified (principal); I48.0 Paroxysmal atrial fibrillation; E78.5 Hyperlipidemia, unspecified; I10 Essential (primary) hypertension; I08.1 Rheumatic disorders of both mitral and tricuspid valves; Z86.16 Personal history of COVID-19; Z87.891 Personal history of nicotine dependence; Z20.822 Contact with and (suspected) exposure to COVID-19; Z82.49 Family history of ischemic heart disease and other diseases of the circulatory system; Z79.01 Long term (current) use of anticoagulants; Z79.899 Other long term (current) drug therapy
CPT/HCPCS: 93312; 93320; 93325; 93458; 92960; 87635; C1894; J2250; J2001; J3010; J2704; J1644; Q9967